=== PATIENT | male | born 1935 | race Asian ===

== ENCOUNTER 2016-11-07 14:41 | Emergency (ER) | payer OTHER, MEDICARE ==
[~2016-11-07] VITALS: Ht 167.6 cm; Wt 61.5 kg
[~2016-11-07 14:41] MED LIST: ACID1TAB7 PO; AMOX1TAB64 PO; AMPI500C2 PO; CEFD300C37 PO; CHOL20003 PO; CYCL1DRO OP; FERR325T20 PO; FUCOIDAN PO; METR500T PO; Metronidazole PO; NAPR-874 PO; OMEP-110 PO; PROP10TA PO; TAMS-11 PO
[2016-11-07] MEDS ORDERED: ALBUTEROL/IPRATROPIUM 2.5MG/0.5MG, 3 ML ONE (15:21)
[2016-11-07] MEDS ORDERED: SODIUM CHLORIDE FLUSH 10ML SYR IVF ONE (15:30)
[2016-11-07] MEDS ORDERED: ALBUTEROL/IPRATROPIUM 2.5MG/0.5MG, 3 ML NPPB ONE (15:30)
[2016-11-07 15:39] LABS: BLOOD UREA NITROGEN 19 mg/dL (7-18)
[2016-11-07 15:46] LABS: IS PT STATUS REG ER OR PRE ER? YES
[2016-11-07 16:40] VITALS: BP 125/45
== END 2016-11-07 17:08 | disposition home or self-care (01) ==
LOC: ED 17:02
DX: J41.1 Mucopurulent chronic bronchitis (principal); J98.01 Acute bronchospasm; I10 Essential (primary) hypertension; Z90.49 Acquired absence of other specified parts of digestive tract
CPT/HCPCS: 36415; 71010; 80048; 82040; 83880; 84484; 85025; 93005; 94640; 99285; J7512; J7620

== ENCOUNTER 2016-11-12 11:42 | Emergency (ER) | payer OTHER, MEDICARE ==
[~2016-11-12] VITALS: Ht 167.6 cm; Wt 64.0 kg
[2016-11-12] MEDS ORDERED: ALBU18HF INH (12:21)
[2016-11-12 12:50] VITALS: BP 111/66
[2016-11-12 13:01] LABS: BLOOD UREA NITROGEN 37 mg/dL (7-18)
[2016-11-12 13:09] LABS: IS PT STATUS REG ER OR PRE ER? YES
== END 2016-11-12 14:16 | disposition home or self-care (01) ==
LOC: ED 14:10
DX: J41.1 Mucopurulent chronic bronchitis (principal); E86.0 Dehydration; I10 Essential (primary) hypertension; Z90.49 Acquired absence of other specified parts of digestive tract
CPT/HCPCS: 36415; 71010; 80048; 82040; 84484; 85025; 93005; 99285

== ENCOUNTER → 2017-01-23 | Outpatient (CLI) | payer MEDICARE, OTHER ==
[~2017-01-23] MED LIST changes: +ALBU18HF INH; +CHOL2000 PO; -CHOL20003 PO
== END | disposition home or self-care (01) ==
LOC: CFH 15:38
PROVIDERS: ATTEND Internal Medicine
DX: I51.7 Cardiomegaly (principal); M48.54XA Collapsed vertebra, not elsewhere classified, thoracic region, initial encounter for fracture; M85.88 Other specified disorders of bone density and structure, other site; M47.894 Other spondylosis, thoracic region; I70.0 Atherosclerosis of aorta; J98.11 Atelectasis; I25.10 Atherosclerotic heart disease of native coronary artery without angina pectoris; D17.1 Benign lipomatous neoplasm of skin and subcutaneous tissue of trunk; K74.60 Unspecified cirrhosis of liver; R16.1 Splenomegaly, not elsewhere classified; K76.6 Portal hypertension; Z90.49 Acquired absence of other specified parts of digestive tract
CPT/HCPCS: 71250

== ENCOUNTER 2017-09-24 13:01 | Inpatient (IN) | payer MEDICARE, OTHER ==
[~2017-09-24] VITALS: Ht 167.6 cm; Wt 67.8 kg
[~2017-09-24 13:01] MED LIST changes: +FERR325T18 PO; -FERR325T20 PO; -NAPR-874 PO; +NAPR250T6 PO
[2017-09-24] MEDS ORDERED: SODIUM CHLORIDE FLUSH 10ML SYR IVF ONE (13:30)
[2017-09-24] MEDS ORDERED: SODIUM CHLORIDE 0.9% 1,000ML IVBOLUS ONE (13:30)
[2017-09-24 13:54] LABS: INTERNATIONAL NORMALIZED RATIO 1.21 (0.93-1.1); PROTHROMBIN TIME 12.4 Seconds (9.6-11.5)
[2017-09-24 13:57] LABS: ALANINE AMINOTRANSFERASE 101 U/L (12-78); ALBUMIN 2.7 g/dL (3.4-5.0); ANION GAP 8 mmol/L (5-15); CALCIUM 7.3 mg/dL (8.5-10.1); CHLORIDE 111 mmol/L (98-107); CREATININE 1.81 mg/dL (0.7-1.3)
[2017-09-24 14:01] LABS: ALKALINE PHOSPHATASE 76 U/L (45-117); BILIRUBIN,TOTAL 2.2 mg/dL (0.2-1.0); TOTAL PROTEIN 6.9 g/dL (6.4-8.2); TROPONIN I 0.034 ng/mL (0.000-0.045)
[2017-09-24 14:22] LABS: BASOPHILS # (AUTO) 0.06 x10^3/uL (0-0.1); BASOPHILS % (AUTO) 1 % (0-1); EOSINOPHILS # (AUTO) 0.13 x10^3/uL (0-0.4); EOSINOPHILS % (AUTO) 1 % (1-7); LYMPHOCYTES % (AUTO) 11 % (22-44); MD SCAN; MEAN CORPUSCULAR HEMOGLOBIN 31.2 pg (27.5-34.5); MEAN CORPUSCULAR HGB CONC 33.7 g/dL (33.2-36.2); MEAN CORPUSCULAR VOLUME 92.6 fL (81-97); MEAN PLATELET VOLUME 8.6 fL (7.4-10.4); MONOCYTES # (AUTO) 0.77 x10^3/uL (0.2-0.8); MONOCYTES % (AUTO) 8 % (2-9); NEUTROPHILS # (AUTO) 7.78 x10^3/uL (1.8-6.8); NEUTROPHILS % (AUTO) 79 % (42-75); PLATELET COUNT 71 x10^3/uL (130-400); RED BLOOD COUNT 4.54 x10^6/uL (4.38-5.82)
[2017-09-24] MEDS ORDERED: CARV12.52 PO (15:02)
[2017-09-24] MEDS ORDERED: TAMS0.4C2 PO (15:02)
[2017-09-24] MEDS ORDERED: SODIUM CHLORIDE 0.9% 1,000 ML IV ONE (16:25)
[2017-09-24] MEDS ORDERED: SODIUM CHLORIDE FLUSH 10ML SYR IVF PRN (16:30)
[2017-09-24] MEDS ORDERED: SIMETHICONE 125 MG CHEW TAB PO PRN (17:30)
[2017-09-24] MEDS ORDERED: OXYcodone IR 5MG TABLET PO PRN (17:30)
[2017-09-24] MEDS ORDERED: ONDANSETRON ODT 4 MG PO PRN (17:30)
[2017-09-24] MEDS ORDERED: ONDANSETRON 2MG/ML, 2ML IVPush PRN (17:30)
[2017-09-24 18:09] LABS: HEMOGLOBIN A1C 4.6 % (4.2-6.3)
[2017-09-24] MEDS: SODIUM CHLORIDE 0.9% 1,000 ML IV SCH (18:22)
[2017-09-24 19:40] VITALS: BP_SYST 120; BP_SYST 128; BP_DIAS 63; BP_DIAS 68
[2017-09-24 20:18] LABS: MICROSCOPIC AUTO
[2017-09-24 20:20] LABS: CULTURE INDICATED? YES
[2017-09-24] MEDS: CEFTRIAXONE PMX 1GM/50ML 50 ML IV SCH (22:28)
[2017-09-25] VITALS (9 sets, daily range): BP systolic 143–188; BP diastolic 64–108
[2017-09-25] MEDS: SODIUM CHLORIDE 0.9% 1,000 ML IV SCH (02:40)
[2017-09-25 05:07] LABS: MEAN CORPUSCULAR HGB CONC 34.1 g/dL (33.2-36.2); MEAN CORPUSCULAR VOLUME 93.9 fL (81-97); RED BLOOD COUNT 4.21 x10^6/uL (4.38-5.82); RED CELL DISTRIBUTION WIDTH 14.9 % (9.4-14.8)
[2017-09-25 05:10] LABS: ALANINE AMINOTRANSFERASE 92 U/L (12-78); ALBUMIN 2.5 g/dL (3.4-5.0); ANION GAP 8 mmol/L (5-15); CALCIUM 7.3 mg/dL (8.5-10.1); CHLORIDE 115 mmol/L (98-107); CREATININE 1.26 mg/dL (0.7-1.3)
[2017-09-25 05:21] LABS: ALKALINE PHOSPHATASE 66 U/L (45-117); BILIRUBIN,TOTAL 1.9 mg/dL (0.2-1.0); THYROID STIMULATING HORMONE 0.425 mIU/L (0.358-3.740); TOTAL PROTEIN 6.2 g/dL (6.4-8.2)
[2017-09-25 05:42] LABS: BASOPHILS # (AUTO) 0.03 x10^3/uL (0-0.1); BASOPHILS % (AUTO) 1 % (0-1); EOSINOPHILS # (AUTO) 0.28 x10^3/uL (0-0.4); EOSINOPHILS % (AUTO) 5 % (1-7); LYMPHOCYTES # (AUTO) 0.95 x10^3/uL (1-3.4); LYMPHOCYTES % (AUTO) 15 % (22-44); MD SCAN; MEAN PLATELET VOLUME 8.7 fL (7.4-10.4); MONOCYTES # (AUTO) 0.74 x10^3/uL (0.2-0.8); MONOCYTES % (AUTO) 12 % (2-9); NEUTROPHILS # (AUTO) 4.33 x10^3/uL (1.8-6.8); NEUTROPHILS % (AUTO) 68 % (42-75); PLATELET COUNT 59 x10^3/uL (130-400)
[2017-09-25] MEDS ORDERED: NS + 20MEQ KCL 1,000 ML IV SCH (09:00)
[2017-09-25] MEDS ORDERED: LABETALOL 5MG/ML, 20ML IVPush PRN (09:00)
[2017-09-25] MEDS ORDERED: hydrALAzine 20 MG/ML, 1ML IV PRN (09:00)
[2017-09-25] MEDS: TAMSULOSIN 0.4 MG CAP.ER.24H PO SCH (09:14)
[2017-09-25] MEDS: CARVEDILOL 6.25 MG TABLET PO SCH ×2 (09:14→19:46)
[2017-09-25] MEDS: CEFTRIAXONE PMX 1GM/50ML 50 ML IV SCH (22:00)
[2017-09-26 02:24] VITALS: BP 158/86
[2017-09-26 05:25] LABS: CHLORIDE 109 mmol/L (98-107)
[2017-09-26 05:37] LABS: ANION GAP 9 mmol/L (5-15); CREATININE 1.11 mg/dL (0.7-1.3)
[2017-09-26 07:17] VITALS: BP 136/68
[2017-09-26] MEDS: TAMSULOSIN 0.4 MG CAP.ER.24H PO SCH (09:32)
[2017-09-26] MEDS: CARVEDILOL 6.25 MG TABLET PO SCH (09:32)
[2017-09-26 13:13] VITALS: BP 180/76
[2017-09-26] MEDS ORDERED: AMLODIPINE 5 MG TABLET PO SCH (14:00)
[2017-09-26 19:30] VITALS: BP 181/89
[2017-09-26 20:30] VITALS: BP 156/85
[2017-09-26] MEDS: CEFTRIAXONE PMX 1GM/50ML 50 ML IV SCH (21:30)
[2017-09-27 02:00] VITALS: BP 143/64
[2017-09-27 04:30] VITALS: BP 127/85
[2017-09-27 07:15] VITALS: BP_SYST 130; BP_SYST 161; BP_SYST 192; BP_DIAS 54; BP_DIAS 79; BP_DIAS 95
[2017-09-27] MEDS ORDERED: AMLODIPINE 5 MG TABLET PO SCH (09:00)
[2017-09-27] MEDS: TAMSULOSIN 0.4 MG CAP.ER.24H PO SCH (09:16)
[2017-09-27] MEDS ORDERED: SULF1TAB24 PO (10:21)
[2017-09-27] MEDS ORDERED: AMLO5TAB2 PO (10:21)
== END 2017-09-27 11:40 | disposition home or self-care (01) | DRG 682 ==
LOC: ED 16:35 → EDIP 16:36 → 5SO 18:08 → DCLOUNGE 09-27 11:03
PROVIDERS: ADMIT Internal Medicine Pulmonary Disease; ATTEND Family Medicine
DX: N17.0 Acute kidney failure with tubular necrosis (principal); E43 Unspecified severe protein-calorie malnutrition; I48.91 Unspecified atrial fibrillation; D69.6 Thrombocytopenia, unspecified; K76.6 Portal hypertension; E83.51 Hypocalcemia; E11.9 Type 2 diabetes mellitus without complications; I44.1 Atrioventricular block, second degree; N39.0 Urinary tract infection, site not specified; E86.0 Dehydration; I95.1 Orthostatic hypotension; Z68.24 Body mass index [BMI] 24.0-24.9, adult; I10 Essential (primary) hypertension; K74.60 Unspecified cirrhosis of liver; K75.9 Inflammatory liver disease, unspecified; N40.0 Benign prostatic hyperplasia without lower urinary tract symptoms; Z90.49 Acquired absence of other specified parts of digestive tract
CPT/HCPCS: 36415; 71045; 76700; 80048; 80053; 81001; 82330; 83036; 83735; 84100; 84443; 84484; 85025; 85610; 85730; 87040; 87086; 87186; 93005; 93306; 93880; 96360; 96361; J0696; J3480; J7030

== ENCOUNTER 2018-06-09 22:56 | Inpatient (IN) | payer MEDICARE, OTHER ==
[~2018-06-09] VITALS: Ht 177.8 cm; Wt 64.3 kg
[~2018-06-09 22:56] MED LIST changes: +AMLO-150 PO; +CARV12.52 PO; +SULF1TAB24 PO; +TAMS0.4C2 PO
--- NOTE | 2018-06-09 23:08 | NUR ---
PER PTS DAUGHTER PT RETURNED FROM [place] ON 05/28 AND HAS SINCE BEEN LETHARGIC AND SLEEPING A LOT. PT WITH PINPOINT PUPILS. PT DOES NOT TAKE NARCOTICS.
[2018-06-09] MEDS ORDERED: ACETAMINOPHEN 650 MG SUPP ONE (23:14)
--- NOTE | 2018-06-09 23:26 | NUR ---
LATE ENTRY 2307: PT TO TR01 WITH DAUGHTER AT BEDSIDE, PT AMBULATORY AND [facility] [place] AT BASELINE. PT RECENTLY WENT TO [place], DAUGHTER REPORTS THAT SDHE WENT TO WORK FOR 48 HOURS AND WHEN SHE RETURNED THEY WERE HAVING EXTREME DIFFICULTY AROUSING. DAUGHTER ALSO REPORTS PT INCONTINENT OF STOOL AND URINE, DENIES DIARRHEA. UPON ARRIVAL AT ER, PT TEMP FOUND TO BE 102 AXILLARY, HYPOTENSIVE STYSTOLIC IN 8OS, AND ONLY AROUSABLE TO PAIN. DR DOTSON AT BEDSIDE. VO RECEIVED FROM NILA. 2 PIV STARTED, 1 SET OF CULTURES DRAWN, 1 LITER NS BOLUS INITIATED, PT REPOSITIONED, CARDIAC/BP/O2 MONITORS APPLIED, URINE SAMPLE VIA IN AND OUT OBRAINED. RECTAL TYLENOL ADMINISTERED PER VO FROM DR DOTSON. FOLLOWING INTERVENTIONS INITIATED: PT TURNED TO THIS NURSE AFTER ~200 CC FLUID INFUSED AND WAS ABLE TO SPEAK PURPOSEFUL SENTENCE. 2ND SET OF CULTURES DRAWN, WILL INITIATE ABX.
[2018-06-09] MEDS ORDERED: VANCOMYCIN 1,200 MG in SODIUM CHLORIDE 0.9% 250 ML IV ONE (23:30)
[2018-06-09] MEDS ORDERED: VANCOMYCIN PER PHARMACY IV ONE (23:30)
[2018-06-09] MEDS ORDERED: SODIUM CHLORIDE 0.9% 1,000ML IVBOLUS ONE (23:30)
[2018-06-09] MEDS ORDERED: ACETAMINOPHEN 650 MG SUPP PR ONE (23:30)
[2018-06-09] MEDS ORDERED: CEFTRIAXONE 1,000 MG in SODIUM CHLORIDE 0.9% 50 ML IVPB ONE (23:30)
[2018-06-09 23:38] LABS: CULTURE INDICATED? YES; MICROSCOPIC INDICATED
[2018-06-09] MEDS ORDERED: CEFTRIAXONE PMX 1GM/50ML 50 ML ONE (23:40)
--- NOTE | 2018-06-09 23:57 | NUR ---
DAUGHTER DOES NOT KNOW MED LIST AT THIS TIME
[2018-06-09 23:58] LABS: MEAN CORPUSCULAR HEMOGLOBIN 34.7 pg (27.5-34.5); MEAN CORPUSCULAR HGB CONC 34.3 g/dL (33.2-36.2); MEAN CORPUSCULAR VOLUME 101.4 fL (81-97); RED BLOOD COUNT 3.78 x10^6/uL (4.38-5.82); RED CELL DISTRIBUTION WIDTH 14.4 % (9.4-14.8)
[2018-06-10] LABS: INTERNATIONAL NORMALIZED RATIO 1.41 (0.93-1.1); PROTHROMBIN TIME 14.8 Seconds (9.6-11.5)
[2018-06-10] MEDS ORDERED: AZITHROMYCIN 500 MG in SODIUM CHLORIDE 0.9% 250 ML IV ONE
[2018-06-10 00:02] LABS: ALANINE AMINOTRANSFERASE 34 U/L (12-78); ALBUMIN 2.4 g/dL (3.4-5.0); ANION GAP 14 mmol/L (5-15); CALCIUM 7.8 mg/dL (8.5-10.1); CHLORIDE 115 mmol/L (98-107); CREATININE 1.87 mg/dL (0.7-1.3)
[2018-06-10 00:06] LABS: ALKALINE PHOSPHATASE 77 U/L (45-117); BILIRUBIN,TOTAL 2.9 mg/dL (0.2-1.0); TOTAL PROTEIN 5.9 g/dL (6.4-8.2)
[2018-06-10 00:09] LABS: TROPONIN I 0.994 ng/mL (0.000-0.045)
[2018-06-10 00:12] LABS: MEAN PLATELET VOLUME 7.7 fL (7.4-10.4)
[2018-06-10 00:14] LABS: BASOPHILS % (AUTO) 0 % (0-1); EOSINOPHILS # (AUTO) 0.04 x10^3/uL (0-0.4); EOSINOPHILS % (AUTO) 1 % (1-7); LYMPHOCYTES # (AUTO) 0.23 x10^3/uL (1-3.4); LYMPHOCYTES % (AUTO) 4 % (22-44); MD SCAN; MONOCYTES # (AUTO) 0.03 x10^3/uL (0.2-0.8); MONOCYTES % (AUTO) 1 % (2-9); NEUTROPHILS # (AUTO) 5.45 x10^3/uL (1.8-6.8); NEUTROPHILS % (AUTO) 95 % (42-75); PLATELET COUNT 47 x10^3/uL (130-400)
[2018-06-10] MEDS ORDERED: CIPR500T87 PO (00:17)
[2018-06-10] MEDS ORDERED: BENZ200C48 PO (00:17)
[2018-06-10] MEDS ORDERED: hydroxyzine (00:17)
[2018-06-10] MEDS ORDERED: CARV12.543 PO (00:17)
--- NOTE | 2018-06-10 00:18 | NUR ---
PT TO CT
--- NOTE | 2018-06-10 00:29 | NUR ---
LUCINDA RN: PT BACK FROM CT
--- NOTE | 2018-06-10 00:41 | NUR ---
LUNCH RN: PT MEDICATED PER EMAR. 5 RIGHTS ADDRESSED. PT RESPONDS TO VERBAL STIMULI. OTHERWISE SLEEPING. VITALS STABLE. WILL CONTINUE TO MONITOR.
--- NOTE | 2018-06-10 01:22 | NUR ---
dr christensen notified pt BP x3 <[address] christensen at bedside for cardiac US, VO for 3rd liter of luids NS. started. Dr Newman at bedside for assessment pt BP 92/57
[2018-06-10] MEDS ORDERED: BISACODYL 10 MG SUPP PR PRN (01:30)
[2018-06-10] MEDS ORDERED: OXYcodone IR 5MG TABLET PO PRN (01:30)
[2018-06-10] MEDS ORDERED: morphine SULFATE 10 MG/ML, 1ML IVPush PRN (01:30)
[2018-06-10] MEDS ORDERED: ONDANSETRON ODT 4 MG PO PRN (01:30)
[2018-06-10] MEDS ORDERED: PROMETHAZINE 25 MG/ML, 1ML IM PRN (01:30)
[2018-06-10] MEDS ORDERED: GABAPENTIN 300 MG CAPSULE PO PRN (01:30)
[2018-06-10] MEDS ORDERED: LABETALOL 5MG/ML, 20ML IVPush PRN (01:30)
[2018-06-10] MEDS ORDERED: ONDANSETRON 2MG/ML, 2ML IVPush PRN (01:30)
[2018-06-10] MEDS ORDERED: POLYETHYLENE GLYCOL 17 GM PACKET PO PRN (01:30)
[2018-06-10 01:54] LABS: RAPID INFLUENZA A Negative (Negative); RAPID INFLUENZA B Negative (Negative)
[2018-06-10 01:55] VITALS: BP 92/60
[2018-06-10 01:57] LABS: FREE T4 (FREE THYROXINE) 1.25 ng/dL (0.76-1.46); THYROID STIMULATING HORMONE 2.81 mIU/L (0.358-3.740)
[2018-06-10] MEDS: PIPERACILLIN/TAZO/PMX 3.375GM 50 ML IV SCH ×2 (02:47→08:28)
[2018-06-10] MEDS: SODIUM CHLORIDE 0.9% 1,000 ML IV SCH ×3 (02:47→21:38)
[2018-06-10] MEDS: LACTULOSE 10 GM/15 ML UDC PO SCH ×3 (02:48→20:49)
[2018-06-10 04:18] VITALS: BP 81/54
[2018-06-10] MEDS ORDERED: SODIUM CHLORIDE 0.9% 1,000ML IVBOLUS ONE (04:30)
[2018-06-10] MEDS ORDERED: SODIUM CHLORIDE 0.9% 1,000 ML IVBOLUS PRN (04:57)
[2018-06-10 05:33] VITALS: BP 80/53
[2018-06-10 07:45] VITALS: BP 95/59
[2018-06-10] MEDS: TAMSULOSIN 0.4 MG CAP.ER.24H PO SCH (07:47)
[2018-06-10] MEDS ORDERED: MAGNESIUM SULFATE PMX 2GM/50ML 50 ML IV ONE (08:00)
[2018-06-10] MEDS ORDERED: POTASSIUM CHLORIDE 20 MEQ TAB.ER.PRT PO ONE (08:00)
[2018-06-10 08:48] LABS: CLOSTRIDIUM DIFFICILE ANTIGEN NEGATIVE; CLOSTRIDIUM DIFFICILE TOXIN NEGATIVE (Negative)
[2018-06-10 09:05] LABS: ALANINE AMINOTRANSFERASE 49 U/L (12-78); ALBUMIN 2.3 g/dL (3.4-5.0); ANION GAP 13 mmol/L (5-15); CALCIUM 7.3 mg/dL (8.5-10.1); CHLORIDE 117 mmol/L (98-107); CREATININE 2.04 mg/dL (0.7-1.3)
[2018-06-10 09:06] LABS: MEAN CORPUSCULAR HEMOGLOBIN 34.1 pg (27.5-34.5); MEAN CORPUSCULAR HGB CONC 33.5 g/dL (33.2-36.2); MEAN CORPUSCULAR VOLUME 101.9 fL (81-97); RED BLOOD COUNT 3.59 x10^6/uL (4.38-5.82); RED CELL DISTRIBUTION WIDTH 14.4 % (9.4-14.8)
[2018-06-10 09:08] LABS: MD YES
[2018-06-10 09:09] LABS: ALKALINE PHOSPHATASE 55 U/L (45-117); BILIRUBIN,TOTAL 3.8 mg/dL (0.2-1.0)
[2018-06-10 09:11] LABS: BAND#(MANUAL) 4.48 x10^3/uL; BANDS%(MANUAL) 27 % (0-7); LYMPHS% (MANUAL) 3 % (22-44); MONOS% (MANUAL) 3 % (2-9); SEG#(MANUAL) 11.12 x10^3/uL (1.8-6.8); SEGS% (MANUAL) 67 % (42-75)
[2018-06-10 09:12] LABS: <PLATELET ESTIMATE> DECREASED; <PLT MORPHOLOGY> NORMAL PLT MORPH; ANISOCYTOSIS 1+; PMNS WITH VACUOLES 1+
[2018-06-10 09:14] LABS: PLATELET COUNT 32 x10^3/uL (130-400)
[2018-06-10] MEDS ORDERED: NOREPINEPHRINE 4 MG in SODIUM CHLORIDE 0.9% 246 ML IV PRN (13:00)
[2018-06-10] MEDS ORDERED: MEROPENEM 1 GM in SODIUM CHLORIDE 0.9% 100 ML IV SCH (13:30)
[2018-06-10] MEDS ORDERED: VANCOMYCIN PER PHARMACY MC PRN (13:30)
[2018-06-11] MEDS: MEROPENEM 500 MG in SODIUM CHLORIDE 0.9% 100 ML IV SCH ×2 (03:27→13:08)
[2018-06-11 04:00] VITALS: BP 122/63
[2018-06-11 05:00] LABS: MEAN CORPUSCULAR HEMOGLOBIN 35.1 pg (27.5-34.5); MEAN CORPUSCULAR HGB CONC 34.2 g/dL (33.2-36.2); MEAN CORPUSCULAR VOLUME 102.7 fL (81-97); MEAN PLATELET VOLUME 9.5 fL (7.4-10.4); RED BLOOD COUNT 3.34 x10^6/uL (4.38-5.82); RED CELL DISTRIBUTION WIDTH 14.7 % (9.4-14.8)
[2018-06-11] MEDS: SODIUM CHLORIDE 0.9% 1,000 ML IV SCH ×2 (05:02→13:09)
[2018-06-11 05:03] LABS: PLATELET COUNT 43 x10^3/uL (130-400)
[2018-06-11 05:06] LABS: ALBUMIN 2.1 g/dL (3.4-5.0); ANION GAP 6 mmol/L (5-15); CHLORIDE 118 mmol/L (98-107)
[2018-06-11 05:11] LABS: ALANINE AMINOTRANSFERASE 60 U/L (12-78); ALKALINE PHOSPHATASE 50 U/L (45-117); BILIRUBIN,TOTAL 3.9 mg/dL (0.2-1.0); CHOL/HDL RATIO 4.3; CHOLESTEROL, TOTAL 91 mg/dL (140-239); CREATININE 1.86 mg/dL (0.7-1.3); HDL CHOL % 23 % (26-37); HDL CHOLESTEROL (DIRECT) 21 mg/dL (40-60); LDL CHOLESTEROL,CALCULATED 45 mg/dL (54-169); LDL/HDL RATIO 2.1 (0.5-3.0); TOTAL PROTEIN 5.8 g/dL (6.4-8.2); TRIGLYCERIDES 126 mg/dL (50-200); VANCOMYCIN,RANDOM 8.1 mcg/mL; VLDL CHOLESTEROL 25 mg/dL (0-25)
[2018-06-11 05:33] LABS: MD YES
[2018-06-11 05:35] LABS: <PLATELET ESTIMATE> DECREASED; <PLT MORPHOLOGY> NORMAL PLT MORPH; ANISOCYTOSIS 1+; BAND#(MANUAL) 2.27 x10^3/uL; BANDS%(MANUAL) 12 % (0-7); EOS#(MANUAL) 0.19 x10^3/uL (0.0-0.4); EOS% (MANUAL) 1 % (1-7); LYMPH#(MANUAL) 1.32 x10^3/uL (1-3.4); LYMPHS% (MANUAL) 7 % (22-44); METAMYELOCYTES# (MANUAL) 0.19 x10^3/uL (0-0); METAMYELOCYTES% (MANUAL) 1 % (0-1); MONOS#(MANUAL) 1.51 x10^3/uL (0.3-2.7); MONOS% (MANUAL) 8 % (2-9); SEG#(MANUAL) 13.42 x10^3/uL (1.8-6.8); SEGS% (MANUAL) 71 % (42-75)
[2018-06-11] MEDS: LACTULOSE 10 GM/15 ML UDC PO SCH ×2 (07:45→20:08)
[2018-06-11] MEDS: TAMSULOSIN 0.4 MG CAP.ER.24H PO SCH (07:52)
[2018-06-12] MEDS: MEROPENEM 500 MG in SODIUM CHLORIDE 0.9% 100 ML IV SCH ×2 (01:42→12:47)
[2018-06-12 04:54] LABS: MEAN CORPUSCULAR HEMOGLOBIN 34.7 pg (27.5-34.5); MEAN CORPUSCULAR HGB CONC 33.7 g/dL (33.2-36.2); MEAN CORPUSCULAR VOLUME 102.9 fL (81-97); MEAN PLATELET VOLUME 8.7 fL (7.4-10.4); PLATELET COUNT 59 x10^3/uL (130-400); RED BLOOD COUNT 3.61 x10^6/uL (4.38-5.82); RED CELL DISTRIBUTION WIDTH 14.7 % (9.4-14.8)
[2018-06-12 05:04] LABS: ANION GAP 6 mmol/L (5-15); CALCIUM 7.5 mg/dL (8.5-10.1); CHLORIDE 118 mmol/L (98-107); CREATININE 1.18 mg/dL (0.7-1.3)
[2018-06-12 05:28] LABS: BASOPHILS # (AUTO) 0.03 x10^3/uL (0-0.1); BASOPHILS % (AUTO) 0 % (0-1); EOSINOPHILS % (AUTO) 4 % (1-7); LYMPHOCYTES # (AUTO) 1.02 x10^3/uL (1-3.4); LYMPHOCYTES % (AUTO) 8 % (22-44); MD SCAN; MONOCYTES # (AUTO) 0.78 x10^3/uL (0.2-0.8); MONOCYTES % (AUTO) 6 % (2-9); NEUTROPHILS % (AUTO) 81 % (42-75)
[2018-06-12 06:08] VITALS: BP 152/100
[2018-06-12] MEDS: TAMSULOSIN 0.4 MG CAP.ER.24H PO SCH (08:41)
[2018-06-12] MEDS: LACTULOSE 10 GM/15 ML UDC PO SCH ×2 (08:41→20:21)
[2018-06-12] MEDS ORDERED: METOPROLOL TARTRATE 25 MG TABLET ONE ×2 (10:24→15:24)
[2018-06-12] MEDS: LACTOBACILLUS CHEW TABLET PO SCH ×3 (10:27→20:21)
[2018-06-12] MEDS: hydrALAzine 20 MG/ML, 1ML IVPush PRN (12:21)
[2018-06-12 15:48] VITALS: BP 111/85
[2018-06-12] MEDS: METOPROLOL TARTRATE 25 MG TABLET PO SCH (17:56)
[2018-06-12 20:04] VITALS: BP 153/67
[2018-06-12] MEDS: MEROPENEM 1,000 MG in SODIUM CHLORIDE 0.9% 100 ML IV SCH (20:21)
[2018-06-13 00:43] VITALS: BP 157/86
[2018-06-13] MEDS: METOPROLOL TARTRATE 25 MG TABLET PO SCH ×3 (05:16→17:20)
[2018-06-13] MEDS: MEROPENEM 1,000 MG in SODIUM CHLORIDE 0.9% 100 ML IV SCH ×3 (05:16→21:37)
[2018-06-13 08:05] VITALS: BP 179/89
[2018-06-13] MEDS: LACTOBACILLUS CHEW TABLET PO SCH ×3 (08:08→21:36)
[2018-06-13] MEDS: LACTULOSE 10 GM/15 ML UDC PO SCH (08:08)
[2018-06-13] MEDS: TAMSULOSIN 0.4 MG CAP.ER.24H PO SCH (08:08)
[2018-06-13 13:46] VITALS: BP 121/63
[2018-06-13 17:19] VITALS: BP 149/80
[2018-06-13 19:45] VITALS: BP 166/90
[2018-06-13] MEDS: hydrALAzine 20 MG/ML, 1ML IVPush PRN (21:37)
[2018-06-14 00:36] VITALS: BP 162/79
[2018-06-14] MEDS: MEROPENEM 1,000 MG in SODIUM CHLORIDE 0.9% 100 ML IV SCH ×3 (05:19→20:42)
[2018-06-14] MEDS: METOPROLOL TARTRATE 25 MG TABLET PO SCH ×3 (05:21→18:06)
[2018-06-14 09:40] VITALS: BP 164/66
[2018-06-14] MEDS: TAMSULOSIN 0.4 MG CAP.ER.24H PO SCH (10:07)
[2018-06-14] MEDS: LACTOBACILLUS CHEW TABLET PO SCH ×3 (10:08→20:42)
[2018-06-14] MEDS: AMLODIPINE 5 MG TABLET PO SCH ×2 (10:09→20:42)
[2018-06-14 13:07] VITALS: BP 142/63
[2018-06-14 18:05] VITALS: BP 141/57
[2018-06-14 19:14] VITALS: BP 142/78
[2018-06-15 02:00] VITALS: BP 128/66
[2018-06-15] MEDS: METOPROLOL TARTRATE 25 MG TABLET PO SCH ×2 (05:23→18:00)
[2018-06-15] MEDS: MEROPENEM 1,000 MG in SODIUM CHLORIDE 0.9% 100 ML IV SCH ×3 (05:23→20:02)
[2018-06-15 08:14] VITALS: BP 144/68
[2018-06-15] MEDS: AMLODIPINE 5 MG TABLET PO SCH ×2 (09:45→20:02)
[2018-06-15] MEDS: LACTOBACILLUS CHEW TABLET PO SCH ×3 (09:45→20:02)
[2018-06-15] MEDS: TAMSULOSIN 0.4 MG CAP.ER.24H PO SCH (09:45)
[2018-06-15 13:00] VITALS: BP 95/55
[2018-06-15 18:57] VITALS: BP 116/82
[2018-06-16 01:30] VITALS: BP 131/67
[2018-06-16] MEDS: MEROPENEM 1,000 MG in SODIUM CHLORIDE 0.9% 100 ML IV SCH ×3 (04:57→21:39)
[2018-06-16] MEDS: METOPROLOL TARTRATE 25 MG TABLET PO SCH ×2 (04:57→18:09)
[2018-06-16 08:14] VITALS: BP 148/73
[2018-06-16] MEDS: AMLODIPINE 5 MG TABLET PO SCH ×2 (10:47→20:36)
[2018-06-16] MEDS: LACTOBACILLUS CHEW TABLET PO SCH ×3 (10:47→20:36)
[2018-06-16] MEDS: TAMSULOSIN 0.4 MG CAP.ER.24H PO SCH (10:47)
[2018-06-16 12:54] VITALS: BP 125/68
[2018-06-16 19:48] VITALS: BP 111/66
[2018-06-17 02:24] VITALS: BP 148/80
[2018-06-17] MEDS: METOPROLOL TARTRATE 25 MG TABLET PO SCH ×2 (05:36→17:41)
[2018-06-17] MEDS: MEROPENEM 1,000 MG in SODIUM CHLORIDE 0.9% 100 ML IV SCH (05:37)
[2018-06-17 07:53] VITALS: BP 158/75
[2018-06-17] MEDS ORDERED: ERGOCALCIFEROL 50,000 UNIT CAPSULE PO SCH (09:00)
[2018-06-17] MEDS: VANCOMYCIN 50 MG/ML ORAL SUSP PO SCH ×2 (09:02→19:55)
[2018-06-17] MEDS: TAMSULOSIN 0.4 MG CAP.ER.24H PO SCH (09:02)
[2018-06-17] MEDS: LACTOBACILLUS CHEW TABLET PO SCH ×3 (09:02→19:55)
[2018-06-17] MEDS: AMLODIPINE 5 MG TABLET PO SCH ×2 (09:02→19:55)
[2018-06-17 09:17] LABS: ALANINE AMINOTRANSFERASE 74 U/L (12-78); ALBUMIN 2.5 g/dL (3.4-5.0); ANION GAP 6 mmol/L (5-15); CALCIUM 8.2 mg/dL (8.5-10.1); CHLORIDE 110 mmol/L (98-107); CREATININE 0.87 mg/dL (0.7-1.3)
[2018-06-17 09:19] LABS: ALKALINE PHOSPHATASE 69 U/L (45-117)
[2018-06-17 09:24] LABS: BASOPHILS # (AUTO) 0.03 x10^3/uL (0-0.1); BASOPHILS % (AUTO) 1 % (0-1); EOSINOPHILS # (AUTO) 0.27 x10^3/uL (0-0.4); EOSINOPHILS % (AUTO) 8 % (1-7); LYMPHOCYTES # (AUTO) 1.03 x10^3/uL (1-3.4); LYMPHOCYTES % (AUTO) 29 % (22-44); MD SCAN; MEAN CORPUSCULAR HEMOGLOBIN 34.8 pg (27.5-34.5); MEAN CORPUSCULAR HGB CONC 34.5 g/dL (33.2-36.2); MEAN CORPUSCULAR VOLUME 100.9 fL (81-97); MEAN PLATELET VOLUME 8.1 fL (7.4-10.4); MONOCYTES # (AUTO) 0.44 x10^3/uL (0.2-0.8); MONOCYTES % (AUTO) 12 % (2-9); NEUTROPHILS # (AUTO) 1.84 x10^3/uL (1.8-6.8); NEUTROPHILS % (AUTO) 51 % (42-75); PLATELET COUNT 83 x10^3/uL (130-400); RED BLOOD COUNT 3.75 x10^6/uL (4.38-5.82); RED CELL DISTRIBUTION WIDTH 13.9 % (9.4-14.8)
[2018-06-17] MEDS: CEFTRIAXONE PMX 1GM/50ML 50 ML IV SCH (12:17)
[2018-06-17] MEDS: POTASSIUM CHLORIDE 20 MEQ PACKET PO SCH (12:17)
[2018-06-17 14:47] VITALS: BP 109/63
[2018-06-17 17:38] VITALS: BP 113/61
[2018-06-17 19:37] VITALS: BP 104/55
[2018-06-18 01:25] VITALS: BP 151/70
[2018-06-18] MEDS: METOPROLOL TARTRATE 25 MG TABLET PO SCH (04:43)
[2018-06-18 05:24] LABS: CHLORIDE 111 mmol/L (98-107)
[2018-06-18 05:33] LABS: ALANINE AMINOTRANSFERASE 94 U/L (12-78); ALBUMIN 2.6 g/dL (3.4-5.0); ALKALINE PHOSPHATASE 69 U/L (45-117); ANION GAP 6 mmol/L (5-15); BILIRUBIN,TOTAL 2.1 mg/dL (0.2-1.0); CALCIUM 8.2 mg/dL (8.5-10.1); CREATININE 0.86 mg/dL (0.7-1.3); TOTAL PROTEIN 7.1 g/dL (6.4-8.2)
[2018-06-18 07:35] VITALS: BP 125/68
[2018-06-18 07:44] VITALS: BP 125/68
[2018-06-18] MEDS: LACTOBACILLUS CHEW TABLET PO SCH ×2 (07:55→16:02)
[2018-06-18] MEDS: AMLODIPINE 5 MG TABLET PO SCH (07:55)
[2018-06-18] MEDS: VANCOMYCIN 50 MG/ML ORAL SUSP PO SCH (07:55)
[2018-06-18] MEDS: POTASSIUM CHLORIDE 20 MEQ PACKET PO SCH (07:55)
[2018-06-18] MEDS: TAMSULOSIN 0.4 MG CAP.ER.24H PO SCH (07:56)
[2018-06-18] MEDS: CEFTRIAXONE PMX 1GM/50ML 50 ML IV SCH (11:25)
[2018-06-18 13:47] VITALS: BP 94/54
[2018-06-18] MEDS ORDERED: VANC1VIA3 PO (14:37)
[2018-06-18] MEDS ORDERED: ERGO500017 PO (14:37)
== END 2018-06-18 17:35 | DRG 871 ==
LOC: ED 23:58 → EDIP 06-10 01:30 → 4WST 06-10 01:43 → CCU 06-10 11:41 → 5SO 06-12 15:57 → 3NW 06-14 19:11
PROVIDERS: ADMIT Internal Medicine; ATTEND Internal Medicine
PROC: 0T9B70Z Drainage of Bladder with Drainage Device, Via Natural or Artificial Opening (ICD-10-PCS; principal; 2018-06-09)
PROC: 02HV33Z Insertion of Infusion Device into Superior Vena Cava, Percutaneous Approach (ICD-10-PCS; 2018-06-10)
PROC: 02HV33Z Insertion of Infusion Device into Superior Vena Cava, Percutaneous Approach (ICD-10-PCS; 2018-06-16)
PROC: B5181ZA Fluoroscopy of Superior Vena Cava using Low Osmolar Contrast, Guidance (ICD-10-PCS; 2018-06-16)
PROC: B548ZZA Ultrasonography of Superior Vena Cava, Guidance (ICD-10-PCS; 2018-06-16)
DX: A41.59 Other Gram-negative sepsis (principal); E43 Unspecified severe protein-calorie malnutrition; N17.0 Acute kidney failure with tubular necrosis; I21.4 Non-ST elevation (NSTEMI) myocardial infarction; G93.49 Other encephalopathy; D68.69 Other thrombophilia; J98.11 Atelectasis; N30.01 Acute cystitis with hematuria; D53.9 Nutritional anemia, unspecified; H91.90 Unspecified hearing loss, unspecified ear; D69.6 Thrombocytopenia, unspecified; E11.9 Type 2 diabetes mellitus without complications; E86.0 Dehydration; E87.6 Hypokalemia; I10 Essential (primary) hypertension; I48.91 Unspecified atrial fibrillation; I86.4 Gastric varices; R65.20 Severe sepsis without septic shock; B19.20 Unspecified viral hepatitis C without hepatic coma; R16.1 Splenomegaly, not elsewhere classified; K57.90 Diverticulosis of intestine, part unspecified, without perforation or abscess without bleeding; K74.60 Unspecified cirrhosis of liver; N20.0 Calculus of kidney; B96.89 Other specified bacterial agents as the cause of diseases classified elsewhere; N40.0 Benign prostatic hyperplasia without lower urinary tract symptoms; Z16.24 Resistance to multiple antibiotics; Z86.19 Personal history of other infectious and parasitic diseases; Z87.442 Personal history of urinary calculi; Z90.49 Acquired absence of other specified parts of digestive tract; Z68.20 Body mass index [BMI] 20.0-20.9, adult; E55.9 Vitamin D deficiency, unspecified
CPT/HCPCS: 36415; 36569; 36600; 70450; 70544; 71045; 74176; 76937; 77001; 80048; 80053; 80061; 80202; 81001; 82140; 82306; 82607; 82803; 82962; 83036; 83605; 83735; 84439; 84443; 84484; 85025; 85610; 87040; 87077; 87081; 87086; 87186; 87324; 87400; 93005; 93306; 96365; 99291; G0378; J0456; J0696; J2185; J2543; J3370; C1751; J0360; J3475; J7030; J7050

== ENCOUNTER 2019-04-07 21:45 | Inpatient (IN) | payer MEDICARE, OTHER ==
[~2019-04-07] VITALS: Ht 167.6 cm; Wt 68.2 kg
[~2019-04-07 21:45] MED LIST changes: +BENZ200C48 PO; +CARV12.543 PO; +CIPR500T87 PO; +ERGO500017 PO; -PROP10TA PO; +PROP10TA16 PO; +VANC1VIA3 PO; +hydroxyzine
[2019-04-07 22:44] LABS: MICROSCOPIC AUTO
[2019-04-07 22:45] LABS: CULTURE INDICATED? YES
[2019-04-07 23:01] LABS: MEAN CORPUSCULAR HEMOGLOBIN 33.6 pg (27.5-34.5); MEAN CORPUSCULAR VOLUME 98.8 fL (81-97); PLATELET COUNT 67 x10^3/uL (130-400); RED BLOOD COUNT 4.31 x10^6/uL (4.38-5.82); RED CELL DISTRIBUTION WIDTH 13.7 % (9.4-14.8)
[2019-04-07 23:07] LABS: ALANINE AMINOTRANSFERASE 124 U/L (12-78); ALBUMIN 2.8 g/dL (3.4-5.0); ANION GAP 6 mmol/L (5-15); CALCIUM 7.9 mg/dL (8.5-10.1); CHLORIDE 113 mmol/L (98-107)
--- NOTE | 2019-04-07 23:09 | NUR ---
Received report, RN to bedside, midlevel provider at bedside. EKG test performed by tech. RN collected urine sample. Imaging to bedside. Awaiting lab, urine results.
[2019-04-07 23:12] LABS: ALKALINE PHOSPHATASE 88 U/L (45-117); BILIRUBIN,TOTAL 1.8 mg/dL (0.2-1.0); TOTAL PROTEIN 7.2 g/dL (6.4-8.2); TROPONIN I 0.016 ng/mL (0.000-0.045)
[2019-04-07] MEDS ORDERED: CEFTRIAXONE PMX 1GM/50ML 50 ML IV ONE (23:30)
[2019-04-07 23:31] LABS: BASOPHILS # (AUTO) 0.03 x10^3/uL (0-0.1); BASOPHILS % (AUTO) 1 % (0-1); EOSINOPHILS # (AUTO) 0.28 x10^3/uL (0-0.4); EOSINOPHILS % (AUTO) 6 % (1-7); LYMPHOCYTES # (AUTO) 1.09 x10^3/uL (1-3.4); LYMPHOCYTES % (AUTO) 24 % (22-44); MD SCAN; MONOCYTES # (AUTO) 0.42 x10^3/uL (0.2-0.8); MONOCYTES % (AUTO) 9 % (2-9); NEUTROPHILS # (AUTO) 2.67 x10^3/uL (1.8-6.8); NEUTROPHILS % (AUTO) 59 % (42-75)
[2019-04-07] MEDS ORDERED: CEFTRIAXONE PMX 1GM/50ML 50 ML ONE (23:41)
[2019-04-07] MEDS ORDERED: LISI-167 PO (23:51)
[2019-04-07] MEDS ORDERED: SODIUM CHLORIDE 0.9% 1,000 ML IV SCH (23:56)
[2019-04-08] VITALS (8 sets, daily range): BP systolic 93–194; BP diastolic 52–86
--- NOTE | 2019-04-08 00:04 | NUR ---
Dr. Shannon to bedside, informed family member of admission. Family member relayed to patient. Everybody agreeable. Awaiting for medical room. Antibiotics flowing well.
--- NOTE | 2019-04-08 00:10 | NUR ---
Gave report to Cher on medical floor. Covered recent complaint of feeling dehydrated. Also relayed interventions performed in ER including IV start and antibiotics completed. Plan of care covered awaiting transfer.
[2019-04-08] MEDS ORDERED: hydrALAzine 20 MG/ML, 1ML IV PRN (00:30)
[2019-04-08] MEDS ORDERED: SODIUM CHLORIDE 0.9% 1,000 ML IV SCH (00:40)
[2019-04-08] MEDS ORDERED: ACETAMINOPHEN 325 MG TABLET PO PRN (01:00)
[2019-04-08] MEDS ORDERED: ONDANSETRON 2MG/ML, 2ML IVPush PRN ×2 (01:00)
[2019-04-08] MEDS ORDERED: LISINOPRIL 10 MG TABLET PO SCH ×2 (09:00→13:00)
[2019-04-08] MEDS: TAMSULOSIN 0.4 MG CAP.ER.24H PO SCH (10:04)
[2019-04-08] MEDS: CARVEDILOL 12.5 MG TABLET PO SCH ×2 (10:04→20:08)
[2019-04-08] MEDS ORDERED: DIPHENHYDRAMINE 25 MG CAPSULE PO PRN (10:30)
[2019-04-08 12:23] LABS: ALBUMIN 2.9 g/dL (3.4-5.0); ANION GAP 7 mmol/L (5-15); CALCIUM 8.2 mg/dL (8.5-10.1); CHLORIDE 112 mmol/L (98-107)
[2019-04-08 12:26] LABS: ALANINE AMINOTRANSFERASE 123 U/L (12-78); ALKALINE PHOSPHATASE 81 U/L (45-117); BILIRUBIN,TOTAL 1.8 mg/dL (0.2-1.0); CREATININE 1.08 mg/dL (0.7-1.3); TOTAL PROTEIN 7.5 g/dL (6.4-8.2)
[2019-04-08] MEDS: CEFTRIAXONE PMX 1GM/50ML 50 ML IV SCH (15:12)
[2019-04-09 00:57] VITALS: BP 153/72
[2019-04-09 05:04] LABS: MEAN CORPUSCULAR HEMOGLOBIN 33.6 pg (27.5-34.5); MEAN CORPUSCULAR HGB CONC 33.6 g/dL (33.2-36.2); MEAN CORPUSCULAR VOLUME 100.1 fL (81-97); RED BLOOD COUNT 4.48 x10^6/uL (4.38-5.82)
[2019-04-09 05:05] LABS: ANION GAP 7 mmol/L (5-15); CALCIUM 8.3 mg/dL (8.5-10.1); CHLORIDE 112 mmol/L (98-107)
[2019-04-09 05:07] LABS: CREATININE 1.18 mg/dL (0.7-1.3)
[2019-04-09 05:41] LABS: BASOPHILS # (AUTO) 0.03 x10^3/uL (0-0.1); BASOPHILS % (AUTO) 1 % (0-1); EOSINOPHILS # (AUTO) 0.35 x10^3/uL (0-0.4); EOSINOPHILS % (AUTO) 7 % (1-7); LYMPHOCYTES # (AUTO) 1.16 x10^3/uL (1-3.4); LYMPHOCYTES % (AUTO) 24 % (22-44); MD SCAN; MEAN PLATELET VOLUME 8.5 fL (7.4-10.4); MONOCYTES # (AUTO) 0.45 x10^3/uL (0.2-0.8); MONOCYTES % (AUTO) 9 % (2-9); NEUTROPHILS % (AUTO) 59 % (42-75); PLATELET COUNT 63 x10^3/uL (130-400)
[2019-04-09 06:47] VITALS: BP 154/77
[2019-04-09] MEDS: TAMSULOSIN 0.4 MG CAP.ER.24H PO SCH (08:29)
[2019-04-09] MEDS: CARVEDILOL 12.5 MG TABLET PO SCH (08:29)
[2019-04-09] MEDS ORDERED: LISINOPRIL 20 MG TABLET PO SCH (09:00)
[2019-04-09 13:28] VITALS: BP 92/53
[2019-04-09] MEDS ORDERED: CEFD300C37 PO (14:59)
[2019-04-09] MEDS ORDERED: LISI-170 PO (14:59)
[2019-04-09] MEDS: CEFTRIAXONE PMX 1GM/50ML 50 ML IV SCH (15:07)
== END 2019-04-09 18:00 | disposition home or self-care (01) | DRG 690 ==
LOC: ED 22:26 → EDIP 23:54 → 3N 04-08 00:35
PROVIDERS: ADMIT Internal Medicine; ATTEND Internal Medicine
DX: N39.0 Urinary tract infection, site not specified (principal); N17.9 Acute kidney failure, unspecified; K74.60 Unspecified cirrhosis of liver; B18.2 Chronic viral hepatitis C; D69.6 Thrombocytopenia, unspecified; E11.9 Type 2 diabetes mellitus without complications; H91.90 Unspecified hearing loss, unspecified ear; I11.9 Hypertensive heart disease without heart failure; I16.0 Hypertensive urgency; B95.4 Other streptococcus as the cause of diseases classified elsewhere; I48.91 Unspecified atrial fibrillation; N10 Acute pyelonephritis; N40.0 Benign prostatic hyperplasia without lower urinary tract symptoms; Z79.899 Other long term (current) drug therapy; Z87.440 Personal history of urinary (tract) infections; Z88.8 Allergy status to other drugs, medicaments and biological substances
CPT/HCPCS: 36415; 71045; 80048; 80053; 81001; 84443; 84484; 85025; 87077; 87086; 93005; 99285; G0378; J0696; J0360; J7030

== ENCOUNTER 2019-04-14 13:47 | Inpatient (IN) | payer MEDICARE, OTHER ==
[~2019-04-14] VITALS: Ht 167.6 cm; Wt 68.9 kg
[2019-04-14] VITALS (8 sets, daily range): BP systolic 124–149; BP diastolic 54–75
[~2019-04-14 13:47] MED LIST changes: +LISI-167 PO; +LISI-170 PO
[2019-04-14] MEDS ORDERED: SODIUM CHLORIDE FLUSH 10ML SYR IVF ONE (14:30)
[2019-04-14 14:49] LABS: INTERNATIONAL NORMALIZED RATIO 1.31 (0.93-1.1); PROTHROMBIN TIME 13.6 Seconds (9.6-11.5)
[2019-04-14 14:50] LABS: ALANINE AMINOTRANSFERASE 138 U/L (12-78); ALBUMIN 2.6 g/dL (3.4-5.0); ANION GAP 4 mmol/L (5-15); CALCIUM 7.7 mg/dL (8.5-10.1); CHLORIDE 113 mmol/L (98-107); CREATININE 1.18 mg/dL (0.7-1.3)
[2019-04-14 14:54] LABS: ALKALINE PHOSPHATASE 71 U/L (45-117); BILIRUBIN,TOTAL 1.5 mg/dL (0.2-1.0); TOTAL PROTEIN 6.8 g/dL (6.4-8.2); TROPONIN I < 0.015 ng/mL (0.000-0.045)
[2019-04-14 15:02] LABS: BASOPHILS # (AUTO) 0.01 x10^3/uL (0-0.1); BASOPHILS % (AUTO) 1 % (0-1); EOSINOPHILS # (AUTO) 0.21 x10^3/uL (0-0.4); EOSINOPHILS % (AUTO) 7 % (1-7); LYMPHOCYTES # (AUTO) 0.79 x10^3/uL (1-3.4); LYMPHOCYTES % (AUTO) 26 % (22-44); MD SCAN; MEAN CORPUSCULAR HEMOGLOBIN 32.9 pg (27.5-34.5); MEAN CORPUSCULAR HGB CONC 33.5 g/dL (33.2-36.2); MEAN PLATELET VOLUME 7.6 fL (7.4-10.4); MONOCYTES # (AUTO) 0.29 x10^3/uL (0.2-0.8); MONOCYTES % (AUTO) 9 % (2-9); NEUTROPHILS # (AUTO) 1.78 x10^3/uL (1.8-6.8); NEUTROPHILS % (AUTO) 58 % (42-75); PLATELET COUNT 68 x10^3/uL (130-400); RED BLOOD COUNT 4.18 x10^6/uL (4.38-5.82); RED CELL DISTRIBUTION WIDTH 13.8 % (9.4-14.8)
--- NOTE | 2019-04-14 15:16 | NUR ---
REPORT RECEIVED FROM KENIA ABREU. ASSUMED CARE OF PT.
--- NOTE | 2019-04-14 15:26 | NUR ---
THIS IS AN 84 YO MALE WHO PRESENTS TO THE ER WITH FAMILY C/O RIGHT FACIAL NUMBNESS AND SOME DIMINISHED FEELING TO RIGHT ARM SINCE MIDNIGHT LAST NOC. PT AO X 4. SKIN PWD. RESP EVEN AND UNLABORED. PT HAS PINPOINT PUPILS, EQUAL BILATERALLY. LEFT PUPIL HAS SLIGHTLY TEARDROP SHAPE, UNABLE TO DETERMINE IF THIS IS NORMAL FOR PT. ABLE TO MOVE ALL EXTREMITIES W/O DIFFICULTY. FAMILY AT BEDSIDE. PT ON CONT BP, CARDIAC AND O2 MONITORS. CALL LIGHT WITHIN REACH. WILL CONT TO MONITOR PT.
--- NOTE | 2019-04-14 15:58 | NUR ---
REPORT FROM KENIA VERA TO ASSUME CARE OF PT. PT RESTING IN ROOM. NO NEEDS EXPRESSED.
--- NOTE | 2019-04-14 15:59 | NUR ---
REPORT TO KENIA HEMPHILL WHO ASSUMED CARE OF PT.
[2019-04-14] MEDS ORDERED: SODIUM CHLORIDE FLUSH 10ML SYR IVF PRN (16:00)
--- NOTE | 2019-04-14 16:22 | NUR ---
SECOND IV ESTABLISHED. AWAITING ROOM ASSIGNMENT.
--- NOTE | 2019-04-14 16:32 | NUR ---
REPORT TO KENIA CACERES. PT READY FOR TRANSPORT.
--- NOTE | 2019-04-14 16:44 | NUR ---
PT TO MRI AT THIS TIME.
[2019-04-14] MEDS ORDERED: ONDANSETRON 2MG/ML, 2ML IVPush PRN (17:30)
[2019-04-14] MEDS ORDERED: INSTRUCTION SEE COMMENTS XX ONE (17:30)
[2019-04-14] MEDS ORDERED: BISACODYL 10 MG SUPP PR PRN (17:30)
[2019-04-14] MEDS: ENALAPRILAT 1.25 MG/ML, 2ML IV PRN (17:43)
[2019-04-14 17:59] LABS: MICROSCOPIC AUTO
[2019-04-14 18:13] LABS: CULTURE INDICATED? NO
[2019-04-14 18:25] LABS: HEMOGLOBIN A1C 4.6 % (4.2-6.3)
[2019-04-14] MEDS: hydrALAzine 20 MG/ML, 1ML IV PRN (18:33)
[2019-04-14 23:26] LABS: MEAN CORPUSCULAR HEMOGLOBIN 33.7 pg (27.5-34.5); MEAN CORPUSCULAR HGB CONC 34.1 g/dL (33.2-36.2); MEAN CORPUSCULAR VOLUME 98.9 fL (81-97); MEAN PLATELET VOLUME 8.1 fL (7.4-10.4); PLATELET COUNT 87 x10^3/uL (130-400); RED BLOOD COUNT 4.26 x10^6/uL (4.38-5.82); RED CELL DISTRIBUTION WIDTH 13.8 % (9.4-14.8)
[2019-04-14 23:30] LABS: INTERNATIONAL NORMALIZED RATIO 1.24 (0.93-1.1); PROTHROMBIN TIME 12.9 Seconds (9.6-11.5)
[2019-04-14 23:52] LABS: BASOPHILS # (AUTO) 0.02 x10^3/uL (0-0.1); BASOPHILS % (AUTO) 1 % (0-1); EOSINOPHILS # (AUTO) 0.27 x10^3/uL (0-0.4); EOSINOPHILS % (AUTO) 7 % (1-7); LYMPHOCYTES # (AUTO) 1.06 x10^3/uL (1-3.4); LYMPHOCYTES % (AUTO) 27 % (22-44); MD SCAN; MONOCYTES # (AUTO) 0.34 x10^3/uL (0.2-0.8); MONOCYTES % (AUTO) 9 % (2-9); NEUTROPHILS # (AUTO) 2.16 x10^3/uL (1.8-6.8); NEUTROPHILS % (AUTO) 56 % (42-75)
[2019-04-15 00:17] VITALS: BP 136/63
[2019-04-15 00:35] VITALS: BP 133/51
[2019-04-15 01:49] VITALS: BP 159/73
[2019-04-15] MEDS: ENALAPRILAT 1.25 MG/ML, 2ML IV PRN ×2 (02:00→08:13)
[2019-04-15 02:50] VITALS: BP 175/65
[2019-04-15 04:23] LABS: INTERNATIONAL NORMALIZED RATIO 1.19 (0.93-1.1); PROTHROMBIN TIME 12.4 Seconds (9.6-11.5)
[2019-04-15 04:24] LABS: ANION GAP 5 mmol/L (5-15); CALCIUM 8.2 mg/dL (8.5-10.1); CHLORIDE 110 mmol/L (98-107); CHOLESTEROL, TOTAL 179 mg/dL (140-239)
[2019-04-15 04:27] LABS: ALANINE AMINOTRANSFERASE 156 U/L (12-78); ALKALINE PHOSPHATASE 73 U/L (45-117); CHOL/HDL RATIO 3.2; CREATININE 1.12 mg/dL (0.7-1.3); HDL CHOL % 31 % (26-37); HDL CHOLESTEROL (DIRECT) 56 mg/dL (40-60); LDL CHOLESTEROL,CALCULATED 99 mg/dL (54-169); LDL/HDL RATIO 1.8 (0.5-3.0); TOTAL PROTEIN 7.4 g/dL (6.4-8.2); TRIGLYCERIDES 122 mg/dL (50-200); VLDL CHOLESTEROL 24 mg/dL (0-25)
[2019-04-15 04:28] LABS: BASOPHILS # (AUTO) 0.03 x10^3/uL (0-0.1); BASOPHILS % (AUTO) 1 % (0-1); EOSINOPHILS # (AUTO) 0.31 x10^3/uL (0-0.4); EOSINOPHILS % (AUTO) 8 % (1-7); LYMPHOCYTES % (AUTO) 23 % (22-44); MD NO; MEAN CORPUSCULAR HEMOGLOBIN 33.9 pg (27.5-34.5); MEAN CORPUSCULAR HGB CONC 34.3 g/dL (33.2-36.2); MEAN PLATELET VOLUME 7.9 fL (7.4-10.4); MONOCYTES # (AUTO) 0.37 x10^3/uL (0.2-0.8); MONOCYTES % (AUTO) 10 % (2-9); NEUTROPHILS # (AUTO) 2.26 x10^3/uL (1.8-6.8); NEUTROPHILS % (AUTO) 58 % (42-75); PLATELET COUNT 102 x10^3/uL (130-400); RED BLOOD COUNT 4.22 x10^6/uL (4.38-5.82); RED CELL DISTRIBUTION WIDTH 13.8 % (9.4-14.8)
[2019-04-15] MEDS: hydrALAzine 20 MG/ML, 1ML IV PRN ×3 (04:33→21:41)
[2019-04-15] MEDS: TAMSULOSIN 0.4 MG CAP.ER.24H PO SCH (08:15)
[2019-04-15] MEDS: CARVEDILOL 3.125 MG TABLET PO SCH ×2 (09:00→21:00)
[2019-04-15] MEDS ORDERED: LISINOPRIL 20 MG TABLET PO SCH (09:00)
[2019-04-15] MEDS ORDERED: ENALAPRILAT 1.25 MG/ML, 1ML IV PRN (09:30)
[2019-04-15] MEDS: LISINOPRIL 20 MG TABLET PO SCH ×2 (11:31→20:35)
[2019-04-15 20:00] VITALS: BP 159/54
[2019-04-16] VITALS (13 sets, daily range): BP systolic 115–170; BP diastolic 49–85
[2019-04-16] MEDS ORDERED: ENALAPRILAT 1.25 MG/ML, 1ML IV PRN (08:00)
[2019-04-16] MEDS: TAMSULOSIN 0.4 MG CAP.ER.24H PO SCH (08:01)
[2019-04-16] MEDS: LISINOPRIL 20 MG TABLET PO SCH ×2 (08:01→19:20)
[2019-04-16] MEDS: CARVEDILOL 3.125 MG TABLET PO SCH ×2 (08:02→19:20)
[2019-04-16] MEDS: hydrALAzine 20 MG/ML, 1ML IV PRN ×2 (16:01→20:41)
[2019-04-17] VITALS (10 sets, daily range): BP systolic 107–179; BP diastolic 56–84
[2019-04-17] MEDS: hydrALAzine 20 MG/ML, 1ML IV PRN ×3 (02:23→20:59)
[2019-04-17] MEDS: LISINOPRIL 20 MG TABLET PO SCH ×2 (09:03→20:26)
[2019-04-17] MEDS: TAMSULOSIN 0.4 MG CAP.ER.24H PO SCH (09:03)
[2019-04-17] MEDS: CARVEDILOL 3.125 MG TABLET PO SCH ×2 (09:03→20:16)
[2019-04-18 00:22] VITALS: BP 134/73
[2019-04-18 04:51] VITALS: BP 158/67
[2019-04-18] MEDS: hydrALAzine 20 MG/ML, 1ML IV PRN (04:54)
[2019-04-18 06:56] VITALS: BP 127/73
[2019-04-18] MEDS: CARVEDILOL 3.125 MG TABLET PO SCH (09:40)
[2019-04-18] MEDS: TAMSULOSIN 0.4 MG CAP.ER.24H PO SCH (09:40)
[2019-04-18] MEDS: LISINOPRIL 20 MG TABLET PO SCH (09:40)
[2019-04-18] MEDS ORDERED: CARV3.1212 PO (12:22)
[2019-04-18] MEDS ORDERED: LISI-170 PO (12:22)
[2019-04-18 13:09] VITALS: BP 142/68
== END 2019-04-18 14:35 | disposition home or self-care (01) | DRG 64 ==
LOC: ED 15:03 → EDIP 17:17 → CCU 17:23 → 4WST 04-16 14:15 → DCLOUNGE 04-18 14:23
PROVIDERS: ADMIT Internal Medicine; ATTEND Internal Medicine
PROC: 30233K1 Transfusion of Nonautologous Frozen Plasma into Peripheral Vein, Percutaneous Approach (ICD-10-PCS; principal; 2019-04-14)
PROC: 30233R1 Transfusion of Nonautologous Platelets into Peripheral Vein, Percutaneous Approach (ICD-10-PCS; 2019-04-14)
DX: I61.3 Nontraumatic intracerebral hemorrhage in brain stem (principal); G93.5 Compression of brain; D68.4 Acquired coagulation factor deficiency; G81.91 Hemiplegia, unspecified affecting right dominant side; K74.69 Other cirrhosis of liver; B18.2 Chronic viral hepatitis C; B19.20 Unspecified viral hepatitis C without hepatic coma; D75.89 Other specified diseases of blood and blood-forming organs; I48.91 Unspecified atrial fibrillation; I10 Essential (primary) hypertension; R00.1 Bradycardia, unspecified; N40.0 Benign prostatic hyperplasia without lower urinary tract symptoms; R29.810 Facial weakness; Z86.73 Personal history of transient ischemic attack (TIA), and cerebral infarction without residual deficits; Z90.49 Acquired absence of other specified parts of digestive tract; Z88.8 Allergy status to other drugs, medicaments and biological substances; Z79.899 Other long term (current) drug therapy; K72.90 Hepatic failure, unspecified without coma; D69.59 Other secondary thrombocytopenia
CPT/HCPCS: 36415; 36430; 70450; 70551; 71045; 80053; 80061; 81001; 82607; 83036; 84484; 85025; 85610; 85730; 86850; 86900; 87081; 93005; G0378; 92523-GN; J0360; P9017; P9035

== ENCOUNTER 2020-02-05 22:24 | Emergency (ER) | payer MEDICARE, OTHER ==
[~2020-02-05] VITALS: Ht 160 cm; Wt 67.6 kg
[~2020-02-05 22:24] MED LIST changes: +CARV3.1212 PO; +FERR-51 PO; +FINA5TAB4 PO; +LEVO750T26 PO; +POTA20TA6 PO; +SUCR1TAB33 PO
--- NOTE | 2020-02-05 22:41 | NUR ---
PATIENT HAS SHUFFLING GAIT, REFUSED WHEELCHAIR TO ROOM
[2020-02-05] MEDS ORDERED: DIPHENHYDRAMINE 25 MG CAPSULE PO ONE (23:00)
[2020-02-05] MEDS ORDERED: FAMOTIDINE 20 MG TABLET PO ONE (23:00)
[2020-02-05] MEDS ORDERED: DIPHENHYDRAMINE 25 MG CAPSULE ONE (23:19)
[2020-02-05] MEDS ORDERED: FAMOTIDINE 20 MG TABLET ONE (23:19)
[2020-02-05 23:57] VITALS: BP 160/89
== END 2020-02-06 00:01 | disposition home or self-care (01) ==
LOC: ED 23:38
DX: L50.0 Allergic urticaria (principal); I12.9 Hypertensive chronic kidney disease with stage 1 through stage 4 chronic kidney disease, or unspecified chronic kidney disease; N18.3 Chronic kidney disease, stage 3 (moderate); I48.91 Unspecified atrial fibrillation; Z90.49 Acquired absence of other specified parts of digestive tract
CPT/HCPCS: 99284; J7512; Q0163

== ENCOUNTER 2020-07-25 18:01 | Emergency (ER) | payer MEDICARE, OTHER ==
[~2020-07-25] VITALS: Ht 165.1 cm; Wt 73.7 kg
--- NOTE | 2020-07-25 18:49 | NUR ---
PT BACK FROM RAD AT THIS TIME. PT CARE TRANSFERRED TO THIS RN AT THIS TIME.
--- NOTE | 2020-07-25 18:59 | NUR ---
PT CAME INTO ED TONIGHT WITH DAUGHTER AFTER A FALL A FEW DAYS PRIOR AND WORSENING PAIN. PT STATES "RIGHT SIDE ALONG BACK AND RIBS IS HURTING". DAUGHTER REPORTS HES STIFFER AND HAVING A HARDER TIME GETTING AROUND DUE TO PAIN. PT RESTING ON GURNEY, PROVIDED WARM BALNKETS FOR COMFORT, PLACED ON SPO2/BP MONITORING. WAITING FOR RAD READ, WCTM.
--- NOTE | 2020-07-25 19:50 | NUR ---
late entry d/t pt care: pt nad resting on gurney, eyes closed, even and unlabored respirations, bed in lowest, rails engaged. wctm
[2020-07-25] MEDS ORDERED: HYDROcodone/APAP 5/325 TABLET ONE (19:56)
[2020-07-25] MEDS ORDERED: HYDROcodone/APAP 5/325 TABLET PO ONE (20:00)
[2020-07-25 20:19] VITALS: BP 159/95
--- NOTE | 2020-07-25 20:48 | NUR ---
Patient given discharge instructions and they have confirmed that they understand the instructions. Patient ambulatory with steady gait but preferred wheelchair for dc. daughter driving home, nad, denies additional questions or needs at this time. no personal belongings left in room after dc.
== END 2020-07-25 20:51 | disposition home or self-care (01) ==
LOC: ED 20:32
DX: S30.0XXA Contusion of lower back and pelvis, initial encounter (principal); S20.211A Contusion of right front wall of thorax, initial encounter; I10 Essential (primary) hypertension; I48.91 Unspecified atrial fibrillation; G89.29 Other chronic pain; Z90.49 Acquired absence of other specified parts of digestive tract; Z86.73 Personal history of transient ischemic attack (TIA), and cerebral infarction without residual deficits; X58.XXXA Exposure to other specified factors, initial encounter; Y93.89 Activity, other specified; Y92.89 Other specified places as the place of occurrence of the external cause; Y99.8 Other external cause status
CPT/HCPCS: 72072; 72110; 99284

== ENCOUNTER 2020-11-16 19:55 | Inpatient (IN) | payer MEDICARE, OTHER ==
[~2020-11-16] VITALS: Ht 170.2 cm; Wt 66.0 kg
[~2020-11-16 19:55] MED LIST changes: +AMPI3VIA IV; +ERTA1VIA IV; +FURO-93 PO; +HYDR-3237 PO; +LACT10SO24 PO; +NAPR-872 PO; -NAPR250T6 PO; +OXYB10TA26 PO; +POTA10TA5 PO; +PRED20TA PO; +PROP10TA51 PO; +SPIR50TA4 PO; +SUCR1TAB PO; +SULF-23 PO; -SULF1TAB24 PO; -VANC1VIA3 PO; +VANC1VIA36 PO
[2020-11-16] MEDS ORDERED: SODIUM CHLORIDE 0.9% 1,000 ML IV ONE (20:30)
[2020-11-16 20:51] LABS: ALANINE AMINOTRANSFERASE 46 U/L (12-78); ALBUMIN 2.9 g/dL (3.4-5.0); ANION GAP 8 mmol/L (5-15); CALCIUM 8.9 mg/dL (8.5-10.1); CHLORIDE 120 mmol/L (98-107); CREATININE 2.81 mg/dL (0.7-1.3)
--- NOTE | 2020-11-16 21:00 | NUR ---
LATE ENTRY: PT BIB FAMILY FOR ALOC AND NOT EATING IN LAST 3 DAYS. PT IA AAO TO SELF WHIICH IS NOT HIS BASELINE. PT IS LETHARGIC BUT RESPONDS TO VERBAL STIMULI. BP LOW BUT OTHER VSS. PIV ATTTEMPTED X 3. LABS DRAWN AND SENT. PT TO CT. WILL HAVE ANOTHER RN ATTEMPT TO PLACE PIV
[2020-11-16 21:06] LABS: BASOPHILS % (AUTO) 1 % (0-1); EOSINOPHILS % (AUTO) 2 % (1-7); LYMPHOCYTES % (AUTO) 15 % (22-44); MEAN CORPUSCULAR HEMOGLOBIN 26.6 pg (27.5-34.5); MEAN PLATELET VOLUME 7.9 fL (7.4-10.4); MONOCYTES % (AUTO) 7 % (2-9); NEUTROPHILS % (AUTO) 76 % (42-75); PLATELET COUNT 97 x10^3/uL (130-400); RED BLOOD COUNT 5.48 x10^6/uL (4.38-5.82); RED CELL DISTRIBUTION WIDTH 23.8 % (9.4-14.8)
[2020-11-16 21:18] LABS: ALKALINE PHOSPHATASE 117 U/L (45-117); BILIRUBIN,TOTAL 2.5 mg/dL (0.2-1.0); TOTAL PROTEIN 7.1 g/dL (6.4-8.2)
[2020-11-16 21:42] LABS: ANISOCYTOSIS 1+; MD MORPH REVIEW ONLY; MICROCYTOSIS 1+; OVALOCYTES 1+; POLYCHROMASIA 1+
[2020-11-16 21:45] LABS: <PLATELET ESTIMATE> DECREASED; SMALL PLATELETS 1+
--- NOTE | 2020-11-16 21:58 | NUR ---
pt straight cathed and ua walked to lab. pt resting. will continue to monitor
[2020-11-16 22:18] LABS: MICROSCOPIC INDICATED
[2020-11-16] MEDS ORDERED: LACTATED RINGERS 1,000 ML IVBOLUS ONE (22:30)
[2020-11-16 22:40] LABS: INTERNATIONAL NORMALIZED RATIO 1.49 (0.93-1.1); PROTHROMBIN TIME 15.8 Seconds (9.6-11.5)
[2020-11-16] MEDS ORDERED: HALOPERIDOL 5 MG/ML ONE ×2 (22:49→23:24)
[2020-11-16] MEDS ORDERED: ERTAPENEM 1 GM in SODIUM CHLORIDE 0.9% 50 ML IV ONE (23:00)
--- NOTE | 2020-11-16 23:15 | NUR ---
HOSPITALIST AT BEDSIDE
--- NOTE | 2020-11-16 23:36 | NUR ---
NEUROLOGY ON [place]. PT FOLLOWS COMMANDS OCCASIONALLY AND REFUSES AT TIMES.
[2020-11-17] MEDS ORDERED: BISACODYL 10 MG SUPP PR PRN
[2020-11-17] MEDS ORDERED: ACETAMINOPHEN 325 MG TABLET PO PRN
[2020-11-17] MEDS ORDERED: ONDANSETRON 2MG/ML, 2ML IVPush PRN
[2020-11-17] MEDS ORDERED: LORazepam 2 MG/ML, 1ML IVPush PRN
[2020-11-17] MEDS ORDERED: HALOPERIDOL 5 MG/ML IV ONE ×2
[2020-11-17] MEDS ORDERED: MELATONIN 5 MG TABLET PO PRN
[2020-11-17] MEDS ORDERED: OXYcodone IR 5MG TABLET PO PRN
[2020-11-17] MEDS ORDERED: DOCUSATE 100 MG CAPSULE PO PRN
[2020-11-17] MEDS ORDERED: POLYETHYLENE GLYCOL 17 GM PACKET PO PRN
[2020-11-17] MEDS ORDERED: SODIUM CHLORIDE 0.9% 1,000 ML IV SCH
[2020-11-17] MEDS ORDERED: ERTAPENEM 1 GM in SODIUM CHLORIDE 0.9% 50 ML IV SCH
[2020-11-17] MEDS ORDERED: hydrALAzine 20 MG/ML, 1ML IVPush PRN
[2020-11-17] MEDS ORDERED: TEMAZEPAM 15 MG CAPSULE PO PRN
[2020-11-17] MEDS: SODIUM CHLORIDE 0.45% 1,000 ML IV SCH ×2 (00:24→08:00)
[2020-11-17 02:45] VITALS: BP 123/94
[2020-11-17 04:48] LABS: BASOPHILS % (AUTO) 1 % (0-1); EOSINOPHILS % (AUTO) 1 % (1-7); LYMPHOCYTES % (AUTO) 13 % (22-44); MEAN CORPUSCULAR HGB CONC 31.4 g/dL (33.2-36.2); MEAN PLATELET VOLUME 8.4 fL (7.4-10.4); MONOCYTES % (AUTO) 7 % (2-9); NEUTROPHILS % (AUTO) 79 % (42-75); PLATELET COUNT 72 x10^3/uL (130-400); RED BLOOD COUNT 4.52 x10^6/uL (4.38-5.82); RED CELL DISTRIBUTION WIDTH 23.2 % (9.4-14.8)
[2020-11-17 05:01] LABS: ANION GAP 8 mmol/L (5-15); CHLORIDE 124 mmol/L (98-107); CREATININE 2.64 mg/dL (0.7-1.3)
[2020-11-17 05:48] LABS: MD SCAN
[2020-11-17] MEDS: FAMOTIDINE 20 MG TABLET PO SCH (08:00)
[2020-11-17] MEDS: POTASSIUM CHLORIDE 20 MEQ in DEXTROSE 5% 1,000 ML IV SCH ×2 (12:23→22:24)
[2020-11-17] MEDS: ERTAPENEM 0.5 GM in SODIUM CHLORIDE 0.9% 50 ML IV SCH (22:24)
[2020-11-18 04:21] LABS: BASOPHILS % (AUTO) 1 % (0-1); EOSINOPHILS % (AUTO) 2 % (1-7); LYMPHOCYTES % (AUTO) 18 % (22-44); MEAN CORPUSCULAR HEMOGLOBIN 26.3 pg (27.5-34.5); MEAN CORPUSCULAR HGB CONC 31.5 g/dL (33.2-36.2); MONOCYTES % (AUTO) 10 % (2-9); NEUTROPHILS % (AUTO) 69 % (42-75); PLATELET COUNT 64 x10^3/uL (130-400); RED BLOOD COUNT 3.77 x10^6/uL (4.38-5.82); RED CELL DISTRIBUTION WIDTH 23.8 % (9.4-14.8)
[2020-11-18 04:33] LABS: ALANINE AMINOTRANSFERASE 41 U/L (12-78); ALBUMIN 2.5 g/dL (3.4-5.0); ANION GAP 9 mmol/L (5-15); CALCIUM 7.8 mg/dL (8.5-10.1); CHLORIDE 119 mmol/L (98-107)
[2020-11-18 04:36] LABS: ALKALINE PHOSPHATASE 90 U/L (45-117); BILIRUBIN,TOTAL 3.4 mg/dL (0.2-1.0); CREATININE 2.54 mg/dL (0.7-1.3); TOTAL PROTEIN 5.5 g/dL (6.4-8.2)
[2020-11-18 04:43] LABS: MD SCAN
[2020-11-18 05:30] VITALS: BP 92/46
[2020-11-18 05:55] VITALS: BP 92/46
[2020-11-18 07:37] VITALS: BP 95/56
[2020-11-18] MEDS: POTASSIUM CHLORIDE 20 MEQ in DEXTROSE 5% 1,000 ML IV SCH ×2 (08:12→18:48)
[2020-11-18] MEDS: FAMOTIDINE 20 MG TABLET PO SCH (08:17)
[2020-11-18 12:59] VITALS: BP 102/65
[2020-11-18 20:39] VITALS: BP_SYST 82; BP_SYST 87; BP_SYST 97; BP_DIAS 48; BP_DIAS 60; BP_DIAS 63
[2020-11-18] MEDS ORDERED: FLUCONAZOLE 200 MG/100 ML 100 ML IV SCH (22:00)
[2020-11-18] MEDS ORDERED: PHARMACY MAY ADJ FOR RENAL FX MC PRN (22:00)
[2020-11-18 23:21] VITALS: BP 101/61
[2020-11-18] MEDS: ERTAPENEM 0.5 GM in SODIUM CHLORIDE 0.9% 50 ML IV SCH (23:35)
[2020-11-19] MEDS: POTASSIUM CHLORIDE 20 MEQ in DEXTROSE 5% 1,000 ML IV SCH ×2 (06:25→14:21)
[2020-11-19] MEDS: FAMOTIDINE 20 MG TABLET PO SCH (07:35)
[2020-11-19 08:51] VITALS: BP 94/62
[2020-11-19 13:27] VITALS: BP 95/61
== END 2020-11-19 15:46 | disposition hospice, home (50) | DRG 64 ==
LOC: ED 20:01 → EDIP 22:31 → CCU 11-17 00:14 → 5SO 11-18 05:28
PROVIDERS: ADMIT Internal Medicine; ATTEND Internal Medicine
PROC: 0T9B70Z Drainage of Bladder with Drainage Device, Via Natural or Artificial Opening (ICD-10-PCS; principal; 2020-11-16)
DX: I61.3 Nontraumatic intracerebral hemorrhage in brain stem (principal); G93.41 Metabolic encephalopathy; E43 Unspecified severe protein-calorie malnutrition; N17.0 Acute kidney failure with tubular necrosis; R57.1 Hypovolemic shock; D68.4 Acquired coagulation factor deficiency; D68.69 Other thrombophilia; E87.2 Acidosis; I48.20 Chronic atrial fibrillation, unspecified; K76.6 Portal hypertension; Z66 Do not resuscitate; D64.9 Anemia, unspecified; E86.0 Dehydration; D69.6 Thrombocytopenia, unspecified; I12.9 Hypertensive chronic kidney disease with stage 1 through stage 4 chronic kidney disease, or unspecified chronic kidney disease; K74.60 Unspecified cirrhosis of liver; I62.00 Nontraumatic subdural hemorrhage, unspecified; N18.30 Chronic kidney disease, stage 3 unspecified; N40.0 Benign prostatic hyperplasia without lower urinary tract symptoms; Z68.22 Body mass index [BMI] 22.0-22.9, adult; Z79.01 Long term (current) use of anticoagulants; Z86.73 Personal history of transient ischemic attack (TIA), and cerebral infarction without residual deficits; Z87.440 Personal history of urinary (tract) infections; Z88.6 Allergy status to analgesic agent
CPT/HCPCS: 36415; 70450; 71045; 76770; 80048; 80053; 81001; 82140; 82533; 82607; 83605; 83735; 84100; 84145; 85025; 85610; 85730; 87040; 87081; 87086; 87106; 93005; 95816; 96361; 96374; 96375; 96376; G0378; J1335; J3480; J7070; J1450; J1630; J2060; J7030; J7120